=== PATIENT | male | born 1990 | race African-American/Black ===

== ENCOUNTER 2018-09-10 09:00 | Inpatient (IN) | payer MEDICAID ==
[~2018-09-10] VITALS: Ht 180.3 cm; Wt 79.8 kg
[2018-09-10] MEDS ORDERED: SODIUM CHLORIDE 0.9% 1,000 ML IV ONE (09:20)
[2018-09-10] MEDS ORDERED: MORPHINE SULFATE 4 MG/ML CPJ (NOT FOR IM USE) IV STA (09:20)
[2018-09-10] MEDS ORDERED: ONDANSETRON HCL 4MG/2ML INJ IV STA (09:20)
[2018-09-10 09:50] LABS: HEMATOCRIT. 47.3 % (42.0-52.0); HEMOGLOBIN. 15.9 g/dL (14.0-18.0); MEAN CORPUSCULAR VOLUME 92.2 fL (80.0-94.0); MEAN PLATELET VOLUME 9.1 fl (7.4-10.4); PLATELET 184 x1000/uL (130-400); RED BLOOD CELL COUNT 5.13 mill/uL (4.7-6.1); RED CELL DISTRIBUTION WIDTH 13.7 % (11.6-14.6)
[2018-09-10 09:53] LABS: CHLORIDE 106 mEq/L (98-107)
[2018-09-10 09:55] LABS: INR 1.1
[2018-09-10 09:58] LABS: ETHANOL BLOOD < 10 mg/dL
[2018-09-10] MEDS ORDERED: DIATR MEGLU/DIATRIZOATE SOLN 120ML ONE (10:00)
[2018-09-10 10:06] LABS: CLARITY URINE CLEAR (CLEAR); COLOR URINE DARK YELLOW (YELLOW); KETONES URINE 4+ (NEGATIVE); LEUKOCYTE ESTERASE URINE 1+ (NEGATIVE); NITRITE URINE NEGATIVE (NEGATIVE); OCCULT BLOOD URINE NEGATIVE (NEGATIVE); PROTEIN URINE 2+ (NEGATIVE); SPECIFIC GRAVITY URINE 1.038 (1.005-1.030)
[2018-09-10 10:13] LABS: PLATELET ESTIMATE NORMAL
[2018-09-10 10:25] LABS: *AMPHETAMINES SCREEN URINE NEGATIVE (NEGATIVE); *BARBITURATES SCREEN URINE NEGATIVE (NEGATIVE); *BENZODIAZEPINES SCREEN URINE NEGATIVE (NEGATIVE); *COCAINE SCREEN URINE NEGATIVE (NEGATIVE)
[2018-09-10 10:26] LABS: CANNABINOID URINE SCREEN PRESUMTIVE POSITIVE (NEGATIVE); METHADONE URINE SCREEN NEGATIVE (NEGATIVE); OPIATES URINE SCREEN NEGATIVE (NEGATIVE); PHENCYCLIDINE URINE SCREEN NEGATIVE (NEGATIVE)
[2018-09-10] MEDS ORDERED: PIPERACILLIN/TAZ 3.375G PREMIX 50 ML IV ONE (10:30)
[2018-09-10] MEDS ORDERED: BUPIVACAINE HCL 0.5% (5MG/ML) 50ML ONE (11:18)
[2018-09-10] MEDS ORDERED: SKIN ADHESIVE 0.7 GM EA TOP ONE (11:18)
[2018-09-10] MEDS ORDERED: DEXT 5%/0.45% NACL KCL 20MEQ/L 1,000 ML IV SCH (11:27)
[2018-09-10] MEDS ORDERED: MORPHINE SULFATE 4 MG/ML CPJ (NOT FOR IM USE) IV PRN ×2 (11:30→11:45)
[2018-09-10] MEDS ORDERED: MORPHINE SULFATE 2 MG/ML CPJ (NOT FOR IM USE) IV PRN (11:30)
[2018-09-10] MEDS ORDERED: HYDROCODONE/ACETAMINOPHEN 5/325MG TABLET PO PRN ×4 (11:30→11:45)
[2018-09-10] MEDS ORDERED: ACETAMINOPHEN 325MG TABLET PO PRN ×3 (11:30→19:45)
[2018-09-10] MEDS ORDERED: ONDANSETRON HCL 4MG/2ML INJ IV PRN ×4 (11:30→19:45)
[2018-09-10] MEDS ORDERED: ROCURONIUM BROMIDE 10MG/ML VIAL 5ML IV ONE (11:57)
[2018-09-10] MEDS ORDERED: FENTANYL CITRATE/PF 50MCG/ML 2ML VIAL ONE (11:57)
[2018-09-10] MEDS ORDERED: NEOSTIGMINE METHYLSULFATE 1MG/ML 10 ML VIAL ONE (11:57)
[2018-09-10] MEDS ORDERED: MIDAZOLAM HCL 2 MG/2 ML VIAL ONE (11:58)
[2018-09-10] MEDS ORDERED: DEXAMETHASONE 4MG/ML 1ML VIAL ONE (11:58)
[2018-09-10] MEDS ORDERED: GLYCOPYRROLATE 0.2 MG/ML 2ML VIAL ONE (11:58)
[2018-09-10] MEDS ORDERED: PROPOFOL 200MG/20ML VIAL IV ONE (11:58)
[2018-09-10] MEDS ORDERED: LABETALOL 5MG/ML SYR 20 MG/4 ML SYRINGE IV PRN (12:30)
[2018-09-10] MEDS ORDERED: MEPERIDINE HCL/PF 25MG/ML CPJ IV PRN (12:30)
[2018-09-10] MEDS: HYDROMORPHONE HCL/PF 2MG/ML CPJ IV PRN ×2 (13:35→13:40)
[2018-09-10] MEDS ORDERED: SODIUM CHLORIDE 0.9% INJ 3ML FLUSH IVF SCH (14:00)
[2018-09-10 14:41] VITALS: BP 111/63
[2018-09-10 15:36] VITALS: BP 111/63
[2018-09-10 16:00] VITALS: BP 121/78
[2018-09-10] MEDS: DEXT 5%/0.45% NACL KCL 20MEQ/L 1,000 ML IV SCH (18:03)
[2018-09-10] MEDS: SODIUM CHLORIDE 0.9% INJ 3ML FLUSH IVF SCH ×2 (18:23→21:15)
[2018-09-10] MEDS ORDERED: DIPHENHYDRAMINE 50MG/ML VIAL IV PRN (19:45)
[2018-09-10 20:00] VITALS: BP 114/70
[2018-09-10] MEDS: MORPHINE SULFATE 2 MG/ML CPJ (NOT FOR IM USE) IV PRN (22:08)
[2018-09-11] VITALS: BP 112/57
[2018-09-11] MEDS: DEXT 5%/0.45% NACL KCL 20MEQ/L 1,000 ML IV SCH ×2 (00:32→11:52)
[2018-09-11] MEDS: MORPHINE SULFATE 2 MG/ML CPJ (NOT FOR IM USE) IV PRN ×2 (03:41→08:48)
[2018-09-11 04:00] VITALS: BP 117/63
[2018-09-11] MEDS: SODIUM CHLORIDE 0.9% INJ 3ML FLUSH IVF SCH (06:25)
[2018-09-11 08:00] VITALS: BP 113/60
[2018-09-11 11:59] VITALS: BP 113/70
== END 2018-09-11 12:24 | disposition home or self-care (01) | DRG 234 ==
LOC: ER 09:00 → ORIP 11:45 → 6EST 14:21
PROVIDERS: ADMIT Internal Medicine; ATTEND Internal Medicine
PROC: 0DTJ4ZZ Resection of Appendix, Percutaneous Endoscopic Approach (ICD-10-PCS; principal; 2018-09-10)
DX: K35.80 Unspecified acute appendicitis (principal); F12.90 Cannabis use, unspecified, uncomplicated; I10 Essential (primary) hypertension; F17.200 Nicotine dependence, unspecified, uncomplicated
CPT/HCPCS: 36415; 74176; 80305; 80320; 88304; 93005; 96361; 96365; 96375; 99291; J1100; J1170; J2250; J2270; J2405; J2543; J2704; J2710; J3010; J3490; J7030; Q9963; G0480

== ENCOUNTER 2018-09-24 08:09 | Emergency (ER) | payer MEDICAID | END 2018-09-24 08:38 | disposition left against medical advice (07) | LOC: ER 08:25 | DX: Z53.21 Procedure and treatment not carried out due to patient leaving prior to being seen by health care provider (principal) ==

== ENCOUNTER 2020-04-02 04:56 | Emergency (ER) | payer MEDICAID ==
[~2020-04-02] VITALS: Ht 180.3 cm; Wt 90.0 kg
[2020-04-02] MEDS ORDERED: ONDANSETRON HCL 4MG/2ML INJ IV ONE (06:00)
[2020-04-02] MEDS ORDERED: SODIUM CHLORIDE 0.9% 1,000 ML IV ONE (06:45)
[2020-04-02 07:13] LABS: BASOPHILS % 0.6 % (0.0-2.0); EOSINOPHILS % 0.4 % (0.0-5.0); HEMATOCRIT. 48.4 % (42.0-52.0); HEMOGLOBIN. 16.3 g/dL (14.0-18.0); LYMPHOCYTES % 35.1 % (20.0-50.0); MEAN CORPUSCULAR HEMOGLOBIN 31.3 pg (28.0-32.0); MEAN CORPUSCULAR VOLUME 93.1 fL (80.0-94.0); NEUTROPHILS % 55.9 % (40.0-76.0); RED CELL DISTRIBUTION WIDTH 13.8 % (11.6-14.6)
[2020-04-02 07:20] LABS: CHLORIDE 106 mEq/L (98-107)
[2020-04-02 07:29] LABS: ETHANOL BLOOD < 10 mg/dL
[2020-04-02 08:35] LABS: MEAN PLATELET VOLUME 10.1 fl (7.4-10.4); PLATELET 134 x1000/uL (130-400)
[2020-04-02 09:27] LABS: *AMPHETAMINES SCREEN URINE NEGATIVE (NEGATIVE); *BARBITURATES SCREEN URINE NEGATIVE (NEGATIVE); CANNABINOID URINE SCREEN PRESUMTIVE POSITIVE (NEGATIVE)
[2020-04-02 09:28] LABS: *COCAINE SCREEN URINE NEGATIVE (NEGATIVE); METHADONE URINE SCREEN NEGATIVE (NEGATIVE); OPIATES URINE SCREEN PRESUMTIVE POSITIVE (NEGATIVE); PHENCYCLIDINE URINE SCREEN NEGATIVE (NEGATIVE)
[2020-04-02 09:30] VITALS: BP 147/82
[2020-04-02 09:30] LABS: *BENZODIAZEPINES SCREEN URINE NEGATIVE (NEGATIVE)
== END 2020-04-02 10:38 | disposition home or self-care (01) ==
LOC: ER 04:56
DX: U07.1 COVID-19 (principal); R11.2 Nausea with vomiting, unspecified; R51.9 Headache, unspecified; I10 Essential (primary) hypertension; F12.10 Cannabis abuse, uncomplicated; Z98.890 Other specified postprocedural states; Z90.49 Acquired absence of other specified parts of digestive tract
CPT/HCPCS: 36415; 71045; 80053; 80305; 80320; 83690; 83880; 84484; 85025; 93005; 96361; 96374; 99285; C9803; J2405; J7030; U0003; G0480